=== PATIENT | female | born 1950 | race Caucasian/White ===

== ENCOUNTER 2018-02-19 17:08 | Emergency (ER) | payer MEDICARE, OTHER ==
[~2018-02-19] VITALS: Ht 162.6 cm; Wt 117.5 kg
[~2018-02-19 17:08] MED LIST: Z.0.ALTACE10 MG PO; Z.0.COREG3.125 MG PO; Z.0.CRESTOR10 MG PO; [UNRECOGNIZED DRUG - OTHER] PO
[2018-02-19] MEDS ORDERED: GARLIC1 EAC1 (17:25)
[2018-02-19] MEDS ORDERED: ASPIR 8181 MG PO (17:25)
[2018-02-19] MEDS ORDERED: MULTI-VITAMIN1 EACH PO (17:25)
[2018-02-19] MEDS ORDERED: FISH OIL 1,0001 EAC2 (17:25)
--- NOTE | 2018-02-19 18:10 | Diagnostic Imaging Report ---
EXAMINATION: CXR 2 VIEW - HOPD INDICATION: Back pain for one day. Upper abdominal pain. ^[id number] ^1737 COMPARISON: None FINDINGS: PA and lateral views TUBES and LINES: None. LUNGS: Lungs are well inflated. Lungs are clear. There is no evidence of pneumonia or pulmonary edema. PLEURA: No pleural effusion or pneumothorax. HEART AND MEDIASTINUM: The cardiomediastinal silhouette is unremarkable. BONES AND SOFT TISSUES: There are degenerative changes in the thoracic spine. Ligamentous anchors project over the right humeral head. Soft tissues are unremarkable. UPPER ABDOMEN: No free air under the diaphragm. IMPRESSION: No acute thoracic abnormality. Signed by: DR. Dustin Fontanez MD on 02/19/2018 6:06 PM
--- NOTE | 2018-02-19 19:27 | Diagnostic Imaging Report ---
EXAM: Right Upper Quadrant Ultrasound INDICATION: ^[id number] ^1902 COMPARISON: None. TECHNIQUE: Transverse and longitudinal images of the right upper abdomen were obtained. FINDINGS: Liver: Size: 17.2 cm in the right midclavicular line, enlarged Appearance: Increased echogenicity, smooth contour Mass: No focal masses Gallbladder: Stones/Sludge: None Wall: 0.2 cm Appearance: No pericholecystic fluid or hydrops. Sonographic Winters's Sign: Negative Bile Ducts: Intrahepatic Ducts: No dilatation Extrahepatic Ducts: Common bile duct measures 0.5 cm, no dilatation Pancreas: Incompletely visualized due to overlying bowel gas, but no abnormality identified involving the visualized portions of the pancreas. Right Kidney: Size: 9 cm Echogenicity: Normal Parenchymal thickness: Normal Collecting system: No hydronephrosis Stones: None Cyst/Mass: None Vessels: Aorta: Visualized portions are normal Inferior Vena Cava: Visualized portions are normal Main Portal Vein: 1.3 cm, normal size with hepatopetal flow. Free Fluid: No ascites or pleural effusion IMPRESSION: Hepatic steatosis and hepatomegaly. Otherwise, unremarkable right upper ultrasound. Signed by: DR. Dustin Fontanez MD on 02/19/2018 7:24 PM
[2018-02-19] MEDS ORDERED: ROBAXIN-750750 MG PO (20:14)
[2018-02-19 21:11] VITALS: BP 146/84
== END 2018-02-19 20:50 | disposition home or self-care (01) ==
LOC: FSED 17:08
DX: R10.11 Right upper quadrant pain (principal); M54.5 Low back pain; S39.012A Strain of muscle, fascia and tendon of lower back, initial encounter; K76.0 Fatty (change of) liver, not elsewhere classified; R74.8 Abnormal levels of other serum enzymes; N18.9 Chronic kidney disease, unspecified; I10 Essential (primary) hypertension; E11.9 Type 2 diabetes mellitus without complications; E78.5 Hyperlipidemia, unspecified
CPT/HCPCS: 71046; 76705; 80053; 81003; 85025; 87086; 99284

== ENCOUNTER 2018-11-22 09:57 | Emergency (ER) | payer MEDICARE, OTHER ==
[~2018-11-22] VITALS: Ht 160 cm; Wt 119.5 kg
[~2018-11-22 09:57] MED LIST changes: +ASPIR 8181 MG PO; +FISH OIL 1,0001 EAC2; +GARLIC1 EAC1; +MULTI-VITAMIN1 EACH PO; +ROBAXIN-750750 MG PO
--- OUTSIDE RECORDS SUMMARY | 2018-11-22 10:00 | XMS REPORT ---
Author Author [facility] Address Unknown Phone Unavailable Care Team Providers Care Cosmetic Account Coordinator Name Role Phone Maxine DAVIS Unavailable Unavailable Payers Payer Name Policy Type Policy Number Effective Date Expiration Date Problems This patient has no known problems. Allergies, Adverse Reactions, Alerts Allergy Name Allergy Type Status Severity Reaction(s) Onset Date Inactive Date Treating Clinician Comments No Known Drug Intolerances DA Active U 2008-11-03 00:00:00 Not Converted 80. See Text. DA Active U 2008-11-03 00:00:00 .ADHESIVES DA Active U 2006-10-11 00:00:00 No Known Contrast Allergies DA Active U 2006-10-11 00:00:00 No Known Drug Allergies DA Active U 2006-10-11 00:00:00 No Known Food Allergies DA Active U 2006-10-11 00:00:00 Medications This patient has no known medications. Results Test Description Test Time Test Comments Text Results Atomic Results Result Comments - XR L-SPINE 4 + VIEWS 2018-05-28 13:33:00 Name: CELESTINE SAWYER JESS[facility] : 1950 Age/S:68 /F [address] [facility] Unit#:[id number] [place]: [place] [address] Phys: Jamshid Cartagena DO Dis Date: PHONE #: [phone] Status: REG CLI FAX #: [phone] Exam Date: 05/28/2018 Reason: ACUTE LT SIDED LOW BACK PAIN EXAMS: CPT CODE: [id number] XR L-SPINE 4 + VIEWS 91928 HISTORY: Pain. COMPARISON: June 06, 2016. 3 views of the left hip: Moderately narrowed hip joint. No AVN. Trabecular pattern and mineralization are normal. Pelvic ring appears intact on a single view however additional views of the pelvis would be of value. SI joints are preserved. Symphysis is well opposed. Soft tissues are normal. IMPRESSION: No acute fracture or dislocation. Narrowed hip joint without AVN. Lumbar spine series, 5 views: No spondylolysis. No spondylolisthesis. Vertebral body heights are maintained. Disc space narrowing at L2-L3 level. Vascular calcifications. Facet hypertrophy throughout the lumbar spine. IMPRESSION: No acute fracture or dislocation. DJD. Vertebral body heights are maintained. at 5085 Reported and signed by: Umer Bone M.D. CC: Jamshid Cartagena DO Technologist: SHARRI SALINAS RT(R),CT Trnscrpt Data: 05/28/2018 (5757) t.SDR.TH4 Orig Print D/T: S: 05/28/2018 (1683) PAGE 1 Signed Report - XR HIP W/PEL UNI 2+V LT 2018-05-28 13:33:00 Name: CELESTINE SAWYER [facility] : 1950 Age/S:68 /F [address] [facility] Unit#:[id number] Loc: [place] [address] Phys: Jamshid Cartagena DO Dis Date: PHONE #: [phone] Status: REG CLI FAX #: [phone] Exam Date: 05/28/2018 Reason: LT HIP PAIN EXAMS: CPT CODE: [id number] XR HIP W/PEL UNI 2+[place] [address]77 HISTORY: Pain. COMPARISON: June 06, 2016. 3 views of the left hip: Moderately narrowed hip joint. No AVN. Trabecular pattern and mineralization are normal. Pelvic ring appears intact on a single view however additional views of the pelvis would be of value. SI joints are preserved. Symphysis is well opposed. Soft tissues are normal. IMPRESSION: No acute fracture or dislocation. Narrowed hip joint without AVN. Lumbar spine series, 5 views: No spondylolysis. No spondylolisthesis. Vertebral body heights are maintained. Disc space narrowing at L2-L3 level. Vascular calcifications. Facet hypertrophy throughout the lumbar spine. IMPRESSION: No acute fracture or dislocation. DJD. Vertebral body heights are maintained. at 1333 Reported and signed by: Umer Bone M.D. CC: Jamshid Cartagena DO Technologist: SHARRI SALINAS RT(R),CT Trnscrpt Data: 05/28/2018 (5024) t.ROSIR.TH4 Orig Print D/T: S: 05/28/2018 (6704) PAGE 1 Signed Report GALL BLADDER-HOPD 2018-02-19 19:23:00 [place] [address] Patient Name: CELESTINE SAWYER MR #: [id number] : 1950 Age/Sex: 68/F Req #: [id number] Adm Physician: Ordered by: BRENDA DAVIS MD Report #: [id number] Location: [facility] Room/Bed: Procedure: [id number] HOPD/US GALL BLADDER-HOPD Exam Date: 02/19/18 Exam Time: 1901 REPORT STATUS: Signed EXAM: Right Upper Quadrant Ultrasound INDICATION: [id number] COMPARISON: None. TECHNIQUE: Transverse and longitudinal images of the right upper abdomen were obtained. FINDINGS: Liver: Size: 17.2 cm in the right midclavicular line, enlarged Appearance: Increased echogenicity, smooth contour Mass: No focal masses Gallbladder: Stones/Sludge: None Wall: 0.2 cm Appearance: No pericholecystic fluid or hydrops. Sonographic Winters's Sign: Negative Bile Ducts: Intrahepatic Ducts: No dilatation Extrahepatic Ducts: Common bile duct measures 0.5 cm, no dilatation Pancreas: Incompletely visualized due to overlying bowel gas, but no abnormality identified involving the visualized portions of the pancreas. Right Kidney: Size: 9 cm Echogenicity: Normal Parenchymal thickness: Normal Collecting system: No hydronephrosis Stones: None Cyst/Mass: None Vessels: Aorta: Visualized portions are normal Inferior Vena Cava: Visualized portions are normal Main Portal Vein: 1.3 cm, normal size with hepatopetal flow. Free Fluid: No ascites or pleural effusion IMPRESSION: Hepatic steatosis and hepatomegaly. Otherwise, unremarkable right upper ultrasound. Signed by: DR. Dustin Lamb MD on 02/19/2018 7:24 PM Dictated By: DUSTIN LAMB MD 23 Transcribed By: ESPERANZA on 02/19/181923 COPY TO: BRENDA DAVIS MD CXR 2 VIEW - HOPD 2018-02-19 18:05:00 [place] [address] Patient Name: CELESTINE SAWYER MR #: [id number] : 1950 Age/Sex: 68/F Req #: [id number] Adm Physician: Ordered by: BRENDA DAVIS MD Report #: [id number] Location: [facility] Room/Bed: Procedure: [id number] HOPD/CXR 2 VIEW - HOPD Exam Date: 02/19/18 Exam Time: 1736 REPORT STATUS: Signed EXAMINATION: CXR 2 VIEW - HOPD INDICATION: B ack pain for one day. Upper abdominal pain. [id number] COMPARISON: None FINDINGS: PA and lateral views TUBES and LINES: None. LUNGS: Lungs are well inflated. Lungs are clear. There is no evidence of pneumonia or pulmonary edema. PLEURA: No pleural effusion or pneumothorax. HEART AND MEDIASTINUM: The cardiomediastinal silhouette is unremarkable. BONES AND SOFT TISSUES: There are degenerative changes in the thoracic spine. Ligamentous anchors project over the right humeral head. Soft tissues are unremarkable. UPPER ABDOMEN: No free air under the diaphragm. IMPRESSION: No acute thoracic abnormality. Signed by: DR. Dustin Lamb MD on 02/19/2018 6:06 PM Dictated By: DUSTIN LAMB MD 05 Transcribed By: ESPERANZA on 02/19/181805 COPY TO: BRENDA DAVIS MD
[2018-11-22 11:36] VITALS: BP 133/67
== END 2018-11-22 11:10 | disposition home or self-care (01) ==
LOC: FSED 09:57
DX: N30.91 Cystitis, unspecified with hematuria (principal); E11.65 Type 2 diabetes mellitus with hyperglycemia; I10 Essential (primary) hypertension; E78.5 Hyperlipidemia, unspecified; Z79.84 Long term (current) use of oral hypoglycemic drugs; Z79.82 Long term (current) use of aspirin
CPT/HCPCS: 81003; 82948; 87086; 87186; 99283